=== PATIENT | male | born 1965 | race Caucasian/White ===

== ENCOUNTER 2019-04-24 19:00 | Emergency (ER) | payer BC ==
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
[2019-04-24] MEDS ORDERED: NA CHLORIDE 0.9% 1,000 ML ONE ×2 (19:29→19:57)
[2019-04-24] MEDS ORDERED: ONDANSETRON 4 MG/2 ML VIAL ONE (19:29)
[2019-04-24] MEDS ORDERED: TETANUS & DIPHTHERIA TOX,ADULT 0.5 ML VIAL ONE (19:29)
[2019-04-24] MEDS ORDERED: MORPHINE 4 MG/ML SYR ONE ×2 (19:29→20:27)
[2019-04-24 19:41] LABS: Absolute Lymphocytes (CBC) 2.1 K/uL (0.7-4.9)
[2019-04-24 19:48] LABS: Basophils % 0.5 % (0-1.3); Hematocrit 43.1 % (39.6-49.0); Lymphocytes % 32.5 % (15.3-44.8); MPV 7.5 fL (7.6-11.3); RBC Red Blood Cell Count 4.53 M/uL (4.33-5.43)
[2019-04-24 19:56] LABS: Albumin 3.8 g/dL (3.4-5.0); Bilirubin Total 0.7 mg/dL (0.2-1.0); Potassium 3.5 mmol/L (3.5-5.1); Protein, Total 7.4 g/dL (6.4-8.2)
[2019-04-24 20:54] VITALS: BP 147/91; TEMP 97.9; O2SAT 100
== END 2019-04-24 20:39 | disposition short-term general hospital (02) ==
LOC: ER 19:00
DX: T22.20XA Burn of second degree of shoulder and upper limb, except wrist and hand, unspecified site, initial encounter (principal); T22.211A Burn of second degree of right forearm, initial encounter; T31.0 Burns involving less than 10% of body surface; X12.XXXA Contact with other hot fluids, initial encounter; Y93.89 Activity, other specified; Y92.9 Unspecified place or not applicable; I10 Essential (primary) hypertension; E78.5 Hyperlipidemia, unspecified
CPT/HCPCS: 96361; 85025; 36415; 80053; 90471; 90714; 96375; 96374; 99285; J7030 ×2; J2405